=== PATIENT | female | born 2000 | race Caucasian/White ===

== ENCOUNTER 2025-04-07 12:48 | Observation (INO) | payer MEDICAID, SELFPAY ==
[2025-04-07 14:23] VITALS: BP 139/102; PULSE 106; RESP 18; TEMP 37.1; O2SAT 100
--- NOTE | 2025-04-07 14:34 | XR_ITS ---
Examination: CT abdomen with intravenous contrast CT pelvis with intravenous contrast 2-D coronal reconstructions 2-D sagittal reconstructions Date and time of exam: April 07, 2025, 1731 hours INDICATIONS: Lower pelvic pain onset today diffuse abdominal pain. CTDI: vol (mGy) 8.41 DLP: (mGycm) 450 Technique: Multiple axial sections of the abdomen and pelvis have been obtained. 64 slice high-resolution scanner used. 3 mm axial sections have been obtained, post intravenous injection 60 cc [id number] 2-D sagittal, coronal reconstructions obtained. Low dose protocols were performed. One or more of the following dose reduction techniques were used; automated exposure control, adjustment of the mA and/or KV according to patient size, use of iterative reconstruction technique. Findings: 13 mm posterior right lobe liver lesion image 41 No biliary tract dilatation No gallstones Spleen pancreas adrenal glands are not enlarged. No renal or ureteral calculi, no hydronephrosis Aorta normal size Appendix is minimally thickened, no definite periappendiceal inflammatory change Anteverted uterus with dilated endometrium Complex cystic solid septated mass in the right pelvis, 5 cm, with marked inflammatory change Mild free fluid in the pelvis Urinary bladder intact Osseous structures intact IMPRESSION: 13 mm posterior right lobe liver lesion, recommend pelvic sonography for further assessment Complex cystic solid septated mass in the right pelvis with marked inflammatory change, differential would include tubo-ovarian abscess, right ovarian tumor, ectopic in the appropriate clinical setting Recommend transabdominal and transvaginal pelvic sonography follow-up
--- NOTE | 2025-04-07 14:35 | PD.EDADULT ---
ED General RME/HPI General Chief complaint: General Adult/Misc Complain Stated complaint: OVARIAN CYST PAIN Time Seen by Provider: 04/07/25 13:04 Arrival date/time: 04/07/25 12:48 24-year-old female with a history of ovarian cyst and fibroids reports with complaints of diffuse abdominal pain for 3 days. Patient also says she has had a bout of nausea but no vomiting no fever, chills, dysuria, urinary, urgency, frequency, hematuria, abnormal vaginal bleeding, weakness, or fatigue. Patient states that she has taken [id number] medications with no improvement of symptoms. Patient also reports mid back pain Limitations: no limitations Related Data Home Medications ?Medication ?Instructions ?Recorded ?Confirmed albuterol sulfate 90 mcg/actuation 2 puff inhalation Q4H PRN 04/08/25 04/08/25 aerosol inhaler shortness of breath or wheezing amlodipine 5 mg tablet 5 mg PO QDAY 04/08/25 04/08/25 beclomethasone dipropionate 40 2 inh inhalation BID 04/08/25 04/08/25 mcg/actuation HFA breath activated aerosol (Qvar RediHaler) hydroxyzine HCl 25 mg tablet 25 mg PO TID 04/08/25 04/08/25 sertraline 50 mg tablet 50 mg PO QDAY 04/08/25 04/08/25 Previous Rx's ?Medication ?Instructions ?Recorded acetaminophen 325 mg tablet 650 mg (2 x 325 mg) PO Q6H PRN 04/09/25 Fever >101.5 #30 tabs amoxicillin 875 mg-potassium 1 tab PO BID #20 tabs 04/09/25 clavulanate 125 mg tablet docusate sodium 100 mg capsule 100 mg PO QDAY PRN Constipation #2 04/09/25 caps doxycycline hyclate 100 mg tablet 100 mg PO BID #14 tabs 04/09/25 ibuprofen 600 mg tablet 600 mg PO Q6H PRN Pain Scale 1-3 04/09/25 (Mild #60 tabs oxycodone-acetaminophen 5 mg-325 1 tab PO Q6H PRN Pain Scale 4-6 04/09/25 mg tablet (Moderate #10 tabs Allergies Allergy/AdvReac Type Severity Reaction Status Date / Time No Known Allergies Allergy Verified 04/07/25 12:50 Review of Systems Constitutional Constitutional: Denies chills, Denies fever(s) and Denies headache(s) ENT Ears, Nose, Mouth, and Throat: Denies dizziness and Denies headache(s) Cardiovascular Cardiovascular: Denies chest pain, Denies dyspnea and Denies irregular heart rhythm Respiratory Respiratory: Denies cough and Denies dyspnea Gastrointestinal Gastrointestinal: Reports abdominal pain, Reports nausea and Denies vomiting Genitourinary Genitourinary: Denies abnormal vaginal bleeding, Denies dysuria, Reports pelvic pain and Reports other (History of uterine fibroids and ovarian cysts) Musculoskeletal Musculoskeletal: Reports back pain and Denies myalgias Integumentary/Breasts Skin/Breast: Denies rash Neurologic Neurologic: Denies dizziness and Denies headache(s) Hematologic/Lymphatic Hematologic/Lymphatic: Denies easy bleeding and Denies easy bruising Past Medical History Social History SMOKING STATUS: Never smoker ED Exam General Limitations: Present no limitations General appearance: Present alert and in no apparent distress Chest Chest inspection: Present normal inspection and symmetric chest wall rise Respiratory Respiratory exam: Present normal lung sounds bilaterally Cardiovascular Cardiovascular exam: Present regular rate, normal rhythm and normal heart sounds Abdominal Exam Abdominal exam: Present soft, tenderness (Diffuse) and normal bowel sounds; Absent guarding, rebound, ascites, mass or hernia Abdominal tenderness: Present diffuse and moderate Extremities Exam Extremities exam: Present normal inspection and full ROM Back Exam Back exam: Present normal inspection and full ROM Neurological Exam Neurological exam: Present alert, oriented X3 and CN II-XII intact Psychiatric Psychiatric exam: Present normal affect and normal mood Skin Skin exam: Present warm, dry, intact and normal color Course Quality Measures none Orders Category Date Time Status Place in Observation Status Routine Admission 04/07/25 23:46 Active Bedside COVID-19 Antigen Test NOW Care 04/07/25 22:52 Completed Bedside Influenza A&B Antigen Test NOW Care 04/07/25 22:52 Completed COVID-19 Screening Questionnaire NOW Care 04/07/25 23:[address] Screening NOW Care 04/07/25 14:35 Completed Decision to Admit X1 Care 04/07/25 23:[address] abdomen pelvis w con Stat Exams 04/07/25 14:34 Completed US abdomen Stat Exams 04/07/25 21:14 Completed US transvaginal Stat Exams 04/07/25 21:14 Completed XR chest 1V portable Stat Exams 04/07/25 22:50 Completed Bilirubin,Direct Stat Lab 04/07/25 16:28 Completed Blood Culture (Lab) Stat Lab 04/07/25 16:28 Completed CBC Stat Lab 04/07/25 14:45 Completed CMP [Comprehensive Metabolic Panel] Stat Lab 04/07/25 14:45 Completed CRP [C-Reactive Protein] Stat Lab 04/07/25 16:28 Completed Free T3 Stat Lab 04/07/25 16:28 Completed Free T4 (Free Thyroxine) Stat Lab 04/07/25 16:28 Completed HCG,Qualitative Serum Stat Lab 04/07/25 14:45 Completed Lactate (Lactic Acid) Stat Lab 04/07/25 16:28 Completed Magnesium Stat Lab 04/07/25 16:28 Completed Procalcitonin Stat Lab 04/07/25 16:28 Completed Sed Rate (ESR) Stat Lab 04/07/25 14:45 Completed TSH [Thyroid Stimulating Hormone] Stat Lab 04/07/25 16:28 Completed UA, C/S IF [Urinalysis, C/S if Indicated] Stat Lab 04/07/25 15:20 Completed Acetaminophen Tab [Tylenol ES Tab] Med 04/07/25 19:16 Discontinued 1,000 mg PO X1 ONE Ketorolac Inj [Toradol Inj] Med 04/07/25 22:52 Discontinued 30 mg IVP X1 ONE Piper/Tazo 3.375 gm Premix [Zosyn] Med 04/07/25 19:20 Discontinued 3.375 gm in 50 ml IV X1 Sodium Chloride 0.9% 1000 ml [Ns] 1,000 ml Med 04/07/25 19:01 Discontinued IV 999 mls/hr Vital Signs Vital signs: Vital Signs Temperature 98.8 F 04/07/25 14:23 Pulse Rate 106 H 04/07/25 14:23 Respiratory Rate 18 04/07/25 14:23 Blood Pressure 139/102 H 04/07/25 14:23 Pulse Oximetry (%) 100 04/07/25 14:23 Oxygen Delivery Method Room Air 04/07/25 14:23 Discharge Plan Plan Patient Disposition: Other Care w/in Hosp ([facility]) Patient condition on transfer: Stable Problem List Clinical Impression: Sepsis, Right tubo-ovarian abscess Patient/Caregiver Discharge Instructions Discharge Activity: activity as tolerated Other Activity Instructions:: Pelvic rest x 2 weeks. Call your stabilizing machine operator in [place] for follow-up in 1 week. Diet Instructions: General diet as tolerated Attestation Attestation I took over the care from ALESHIA Bowers at _11PM_ on _04/07/25_. See previous notes for complete H & P and ED course. I reviewed all diagnostic test results. My interpretation of the chest x-ray is NAD. My review of the abdominal CT report is right sided pelvic complex cystic mass. My review of the abdominal US report is NAD. My review of the pelvic US report is right adnexal masses. Blood tests and urine tests remarkable for WBC 25.4, ESR 30, CRP 4.7. Diagnoses include: Sepsis Right tubo-ovarian abscess Treatment here included: IVF Tylenol Toradol Zosyn We discussed the case with our PULL SOCKET ASSEMBLER (Dr. Godoy). About the presentation and exam and diagnostics and treatments here. And need of further care in the hospital. Agreed to accept the patient. Shan Mckeon MD [facility] Medication Administration(s) Medication Administration History Discontinued Medications Acetaminophen (Acetaminophen 500 Mg Tablet) 1,000 mg PO X1 ONE Stop: 04/07/25 19:17 Last Admin: 04/07/25 19:53 Dose: 1,000 mg Documented By: MILDRED Acetaminophen (Acetaminophen 325 Mg Tablet) 650 mg PO Q6H PRN PRN Reason: Fever >101.5 Stop: 05/07/25 23:45 Bisacodyl (Bisacodyl 5 Mg Tabec) 10 mg PO QDAY PRN PRN Reason: CONSTIPATION Stop: 05/07/25 23:45 Bisacodyl (Bisacodyl 10 Mg Supp) 10 mg OR QDAY PRN PRN Reason: CONSTIPATION Stop: 05/07/25 23:45 Docusate Sodium (Docusate Sod 100 Mg Capsule) 100 mg PO QDAY PRN; Protocol PRN Reason: CONSTIPATION Stop: 05/07/25 23:45 Doxycycline Hyclate (Doxycycline 100 Mg Tablet) 100 mg PO BID LOYD Stop: 04/14/25 23:44 Last Admin: 04/09/25 08:34 Dose: 100 mg Documented By: Admin: 04/08/25 20:58 Dose: 100 mg Documented By: Admin: 04/08/25 09:33 Dose: 100 mg Documented By: ps Admin: 04/08/25 00:43 Dose: 100 mg Documented By: MILDRED Hydromorphone HCl (Hydromorphone Inj 2 Mg/Ml Vial) 1 mg IVP Q2H PRN PRN Reason: PAIN SCALE 7-10 (Severe Stop: 04/12/25 23:45 Last Admin: 04/08/25 21:29 Dose: 1 mg Documented By: Admin: 04/08/25 13:28 Dose: 1 mg Documented By: mercy Admin: 04/08/25 09:33 Dose: 1 mg Documented By: mercy Admin: 04/08/25 05:47 Dose: 1 mg Documented By: Admin: 04/08/25 00:43 Dose: 1 mg Documented By: MILDRED Sodium Chloride (Ns) 1,000 mls @ 999 mls/hr IV .Q1H1M ONE Stop: 04/07/25 20:01 Last Infusion: 04/07/25 21:41 Dose: Infused Documented By: Admin: 04/07/25 19:46 Dose: 999 mls/hr Documented By: Piperacillin/Tazobactam/Dextrose (Zosyn) 3.375 gm in 50 mls @ 100 mls/hr IV X1 ONE; Protocol Stop: 04/07/25 19:49 Last Infusion: 04/07/25 21:41 Dose: Infused Documented By: Admin: 04/07/25 19:54 Dose: 100 mls/hr Documented By: MILDRED Potassium Chloride/Dextrose/Sod Cl (Kcl 20 Meq/L In D5-1/2ns) 20 meq in 1,000 mls @ 125 mls/hr IV .Q8H [facility] Stop: 05/07/25 23:44 Last Admin: 04/09/25 09:03 Dose: 125 mls/hr Documented By: Infusion: 04/09/25 09:01 Dose: Infused Documented By: Admin: 04/09/25 01:01 Dose: 125 mls/hr Documented By: Infusion: 04/09/25 00:38 Dose: Infused Documented By: Admin: 04/08/25 16:38 Dose: 125 mls/hr Documented By: mercy Infusion: 04/08/25 16:38 Dose: Infused Documented By: mercy Admin: 04/08/25 09:33 Dose: 125 mls/hr Documented By: mercy Infusion: 04/08/25 08:43 Dose: Infused Documented By: mercy Admin: 04/08/25 00:43 Dose: 125 mls/hr Documented By: MILDRED Ceftriaxone Sodium/Dextrose (Rocephin/D5w 1gm Iv Premix) 1 gm in 50 mls @ 100 mls/hr IV DAILY [facility] Stop: 04/15/25 08:59 Last Admin: 04/09/25 08:34 Dose: 100 mls/hr Documented By: Infusion: 04/08/25 10:04 Dose: Infused Documented By: Admin: 04/08/25 09:34 Dose: 100 mls/hr Documented By: mercy Ibuprofen (Ibuprofen Tab 600 Mg Tablet) 600 mg PO Q6H PRN PRN Reason: PAIN SCALE 1-3 (mild Stop: 05/07/25 23:45 Ketorolac Tromethamine (Ketorolac Inj 30 Mg/Ml Vial) 30 mg IVP X1 ONE Stop: 04/07/25 22:53 Last Admin: 04/07/25 23:29 Dose: 30 mg Documented By: MILDRED Metoclopramide HCl (Metoclopramide Inj 5 Mg/Ml Vial 2 Ml) 10 mg IVP Q8HR [facility]; Protocol Stop: 05/08/25 10:24 Last Admin: 04/09/25 14:50 Dose: 10 mg Documented By: Admin: 04/09/25 06:36 Dose: 10 mg Documented By: Admin: 04/08/25 21:06 Dose: 10 mg Documented By: Admin: 04/08/25 13:29 Dose: 10 mg Documented By: mercy Admin: 04/08/25 10:31 Dose: 10 mg Documented By: mercy Ondansetron HCl (Ondansetron Inj 2 Mg/Ml Inj 2 Ml) 4 mg IVP Q6H PRN PRN Reason: NAUSEA OR VOMITING Stop: 05/07/25 23:45 Last Admin: 04/08/25 09:33 Dose: 4 mg Documented By: mercy Admin: 04/08/25 01:39 Dose: 4 mg Documented By: SUDARSHAN Oxycodone/Acetaminophen (Oxycodone/Apap 5/325 Tablet) 2 tab PO Q6H PRN PRN Reason: PAIN SCALE 4-6 (Moderate Stop: 04/12/25 23:45 Last Admin: 04/09/25 06:36 Dose: 2 tab Documented By: Admin: 04/09/25 01:00 Dose: 2 tab Documented By: Admin: 04/08/25 05:14 Dose: 2 tab Documented By: SUDARSHAN
[2025-04-07 15:06] LABS: Basophils # (Auto) 0.1 Thou/mm3 (0.0-0.2); Basophils % (Auto) 0 % (0-2.5); Eosinophils # (Auto) 0.1 Thou/mm3 (0.0-0.5); Eosinophils % (Auto) 0 % (0-10); Hematocrit 41.7 % (36.0-46.0); Hemoglobin 13.9 g/dL (12.0-16.0); Immature Granulocytes Auto 0.13 Thou/mm3 (0.00-0.00); Lymphocytes # (Auto) 1.5 Thou/mm3 (1.0-4.8); Lymphocytes % (Auto) 6 % (10-50); Mean Corpuscular HGB Conc 33.3 g/dl (31.0-37.0); Mean Corpuscular Hemoglobin 28.6 pg (25.0-35.0); Mean Corpuscular Volume 86 fL (80-100); Monocytes # (Auto) 1.0 Thou/mm3 (0.0-0.8); Monocytes % (Auto) 4 % (0-12); Neutrophils # (Auto) 22.7 Thou/mm3 (1.8-7.7); Neutrophils % (Auto) 89 % (37-80); Nucleated Red Blood Cell # 0.00 Thou/mm3 (0.00-0.00); Nucleated Red Blood Cell % 0 /100 WBC (0); Platelet Count 282 Thou/mm3 (140-440); RDW Standard Deviation 43.6 fL (36.4-46.3); Red Blood Count 4.86 Miln/mm3 (4.00-5.20); White Blood Count 25.4 Thou/mm3 (3.6-11.0)
[2025-04-07 15:30] LABS: HCG,Qualitative Serum Negative
[2025-04-07 15:31] LABS: Alanine Aminotransferase 28 U/L (10-49); Albumin, Serum 5.1 gm/dL (3.5-5.0); Albumin/Globulin Ratio 1.6 (1.2-2.2); Alkaline Phosphatase 91 U/L (46-116); Anion Gap 13 (7-16); Aspartate Amino Transferase 21 U/L (0-34); BUN/Creatinine Ratio 9 Ratio (12-20); Bilirubin,Total 0.5 mg/dL (0.3-1.2); Blood Urea Nitrogen 7 mg/dL (9-23); Calcium 9.3 mg/dL (8.3-10.6); Calcium (Corrected) 9.3 mg/dL (8.5-10.1); Carbon Dioxide 24.5 mMol/L (20.0-31.0); Chloride 103 mMol/L (98-107); Creatinine (Component) 0.8 mg/dL (0.6-1.3); Globulin 3.1 gm/dL (2.3-3.5); Glucose 101 mg/dL (74-106); Osmolality,Calculated 277 (275-295); Potassium 3.9 mMol/L (3.4-5.1); Sodium 140 mMol/L (136-145); Total Protein 8.2 gm/dL (5.7-8.2); eGFR > 60 See Note
--- NOTE | 2025-04-07 15:34 | PC.NURSE ---
Sepsis alert initiated at 1530.
[2025-04-07 15:59] LABS: Collection Type, Urine Clean Catch
[2025-04-07 16:04] LABS: Bilirubin,Urine Negative (Negative); Blood,Urine 2+ (Negative); Clarity,Urine Clear (Clear/Hazy); Color,Urine Lt-Yellow (Lt Yel-Yel); Culture Indicated,Urine Not Indicated; Glucose, Urine Negative (Negative); Ketones,Urine Negative (Negative); Leukocyte Esterase,Urine Negative (Negative); Nitrite,Urine Negative (Negative); PH,Urine 7.5 (5.0-7.0); Protein,Urine Negative (Neg - Trace); RBC,Urine 3 /hpf (0-3); Specific Gravity,Urine 1.024 (1.001-1.035); Squamous Epithelial Cell,Urine 11 /hpf (0-5); Urobilinogen,Urine Negative mg/dL (0.0-1.0); WBC,Urine 2 /hpf (0-5)
[2025-04-07 16:41] LABS: Lactate (Lactic Acid) 1.8 mMol/L (0.4-2.0)
[2025-04-07 17:11] LABS: Procalcitonin 0.13 ng/ml (0.0-0.49)
[2025-04-07 19:08] VITALS: BP 134/95; PULSE 108; RESP 20; TEMP 37.9; O2SAT 97
[2025-04-07] MEDS: SODIUM CHLORIDE 0.9% 1000 ML 1,000 ML 999 ML IV (19:46)
[2025-04-07 19:52] VITALS: BP 142/99; PULSE 109; RESP 17; TEMP 36.9; O2SAT 97
[2025-04-07] MEDS: ACETAMINOPHEN 500 MG TABLET 1000 MG PO (19:53)
[2025-04-07] MEDS: PIPER/TAZO 3.375 GM PREMIX 3.375 GM/50 ML BAG IV (19:54)
--- NOTE | 2025-04-07 21:14 | XR_ITS ---
Examination: Transvaginal ultrasound of the pelvis, complete Technique: Transvaginal sonographic images pelvis performed using louis scale imaging Exam date and time: April 07, 2025, 213 hours INDICATIONS: Pelvic pain fever today, CT examination this afternoon complex cystic solid septated mass in the right pelvis with marked inflammatory change FINDINGS: Uterus 6.8 cm endometrial stripe 0.3 cm No uterine mass or intrauterine gestation Fluid in the anterior cul-de-sac Right ovary 6.9 cm arterial flow, 2.8 x 2.1 x 2.4 cm solid lesion, 2.5 x 1.9 x 2.1 cm solid lesion Upper ovary 4.4 cm arterial flow poorly defined left ovarian cyst 2.4 x 1.9 cm IMPRESSION: Right adnexal solid masses 2.8 x 2.1 x 2.4 cm, 2.5 x 1.9 x 2.1 cm, differential would include tubo-ovarian abscesses, ovarian tumors, ectopic in the appropriate clinical setting, clinical correlation advised If ectopic is excluded clinically, consider MRI pelvis follow-up pre and postcontrast.
--- NOTE | 2025-04-07 21:14 | XR_ITS ---
Examination: Abdomen sonogram, complete Date and time of exam: April 07, 2025, 2126 hours INDICATIONS: Fever abdominal pain today TECHNIQUE: Grayscale sonographic images of abdomen. FINDINGS: Normal gallbladder Normal common bile duct 0.1 cm Pancreatic head 2.3 cm Aorta not enlarged. Liver 13.9 cm solid right lobe liver lesion 20 x 16 x 16 mm, hyperechoic Normal hepatopetal portal venous flow Patent IVC Right kidney 10.8 cm renal cortex 1.9 cm Left kidney 10.2 cm renal cortex 2.5 cm Spleen 9.8 cm. Impression: Hyperechoic right lobe liver lesion 20 x 16 x 16 mm which may represent a hemangioma Recommend 3 to 6-month follow-up hepatic sonography
[2025-04-07 22:43] VITALS: BP 137/89; PULSE 95; RESP 18; TEMP 36.8; O2SAT 99
--- NOTE | 2025-04-07 22:50 | XR_ITS ---
EXAMINATION: AP chest single view TECHNIQUE: AP portable upright chest single view Date and time: April 07, 2025, 11:14 p.m. INDICATION: Fever today. FINDINGS: Normal heart size No lobar pneumonia Intact osseous structures IMPRESSION: No active disease
[2025-04-07 23:21] LABS: Sed Rate (ESR) 30 mm/hr (0-20)
--- NOTE | 2025-04-07 23:28 | ESCONSULT_ITS ---
[facility] HPI Data of Consult Patient: new to practice Consult date: 04/07/25 Requesting Physician: Charli Hillman PA-C Primary Care Provider: Physician No Primary/Family Consult Narrative Reason for consult: pelvic pain and pelvic mass History of present illness: The patient is a 24-year-old G0 presented to the ER earlier this afternoon with pelvic pain. She stated worsened over the last 3 days. She denied fevers or chills, she reports the pain is stabbing ,diffuse and constant. She denies diarrhea or constipation or rectal bleeding. She has mild nausea but no vomiting. Per patient she has a history of fibroids and endometriosis. She was seeing a physician in [place] and had an MRI done in January of this year. Patient has the report on her phone. It is from February 20 revealing suspected bilateral endometriomas each 2 to 3 cm. Patient is engaged and her fianc? is at bedside during the interview. She reports some abnormal bleeding and some discharge. She denied history of STDs or new sexual contacts. She states her cycles are irregular they are not using anything consistently for contraception. As part of her workup, the patient had a CBC revealing an elevated white count of 25 with 89% neutrophils. Hemoglobin was stable at 13.9. hCG is negative. UA is unremarkable. A CT scan revealed a 5 cm mass with inflammatory changes in the right adnexa a transvaginal ultrasound was performed but not officially read yet. I did look at the films and uterus measures approximately 6.7 x 4.7 x 3 cm with a 0.3 cm stripe right ovary is enlarged 6.9 x 4.6 x 5.4 cm with grayish appearance and complex suggestive of a possible endometrioma ,her left ovary measures 4.4 x 2.9 x 3 cm. Patient had a temperature of 100.3 degrees in the emergency room. Before I was consulted, Zosyn was given. In the emergency room, the patient is asking if she can eat. For her pain as an outpatient, the patient was only given ibuprofen. She was supposed to follow-up with her primary wire straightener in [place] but did not receive a phone call after her MRI done February 20, 2025. cc:: cc: Review of Systems Review of Systems Narrative Review of Systems: Pelvic pain, stabbing, some abnormal bleeding and abnormal discharge. No documented fevers or chills at home. Past Medical History Past Medical History Comments PMH COMMENT: Patient is hypertensive on amlodipine She has a history of scoliosis but no surgery She is asthmatic on 2 inhalers She denies any other surgeries. Meds Home Medications and Allergies Allergies Allergy/AdvReac Type Severity Reaction Status Date / Time No Known Allergies Allergy Verified 04/07/25 12:50 Exam - [facility] Vital Signs Temp Pulse Resp BP Pulse Ox O2 Del Method 98.2 F 95 18 137/89 H 99 Room Air 04/07/25 22:43 04/07/25 22:43 04/07/25 22:43 04/07/25 22:43 04/07/25 22:43 04/07/25 22:43 Constitutional Constitutional: mild distress and cooperative Comments: The patient's alert and cooperative. She is wincing in pain occasionally during the interview. Routine Abdominal Exam Abdominal: Present soft and tenderness Comments: Abdomen is soft diffusely tender no rebound or guarding Routine Exam Comments: Pelvic exam was performed at bedside. Patient has a narrow pelvic outlet. She has diffuse tenderness of her pelvis no discrete ovarian masses can be palpated. The uterus feels mobile. Uterus is midlying. Detailed Pelvic Exam Uterus: Present tenderness and mobile [facility] - Results Labs 04/07/25 14:45 04/07/25 14:45 Labs: Short CBC 04/07/25 Range/Units 14:45 WBC 25.4 H (3.6-11.0) Thou/mm3 Hgb 13.9 (12.0-16.0) g/dL Hct 41.7 (36.0-46.0) % Plt Count 282 (140-440) Thou/mm3 BMP 04/07/25 14:45 Sodium 140 Potassium 3.9 Chloride 103 Carbon Dioxide 24.5 BUN 7 L Creatinine 0.8 Glucose 101 Calcium 9.3 Liver Function 04/07/25 Range/Units 14:45 Total Bilirubin 0.5 (0.3-1.2) mg/dL AST 21 (0-34) U/L ALT 28 (10-49) U/L Alkaline Phosphatase 91 (46-116) U/L Albumin 5.1 H (3.5-5.0) gm/dL Urine 04/07/25 Range/Units 15:20 Urine Color Lt-Yellow (Lt Yel-Yel) Urine Clarity Clear (Clear/Hazy) Urine pH 7.5 H (5.0-7.0) Ur Specific [place] 1.024 (1.001-1.035) Urine Protein Negative (Neg - Trace) Urine Glucose (UA) Negative (Negative) Assessment and Plan Assessment and plan (1) Pelvic pain: Status: Acute Assessment and plan: At this point we will admit the patient for pain control and observation. (2) Ovarian cyst: Status: Acute Assessment and plan: Patient has an enlarged right ovary and pain. Ultrasound appears to be an endometrioma. Check GC chlamydia treat the patient will start with Rocephin and doxycycline and reevaluate. (3) Endometriosis: Status: Acute Assessment and plan: Patient has a wire straightener and was supposed to follow-up as an outpatient but the wire straightener never called her. Patient may need a diagnostic laparoscopy. We did discuss endometriosis and the fact that it can cause her significant adhesions between bowel ovaries tubes and other organs. If she has surgery, she may need a oophorectomy or salpingo-oophorectomy. This would affect future childbearing. At this time, the plan is to admit the patient, give antibiotics and reassess pain and symptoms tomorrow. (1) Pelvic pain Qualifiers: Laterality: unspecified laterality Qualified Code(s): R10.20 - Pelvic and perineal pain unspecified side (2) Ovarian cyst Qualifiers: Laterality: right Qualified Code(s): N83.201 - Unspecified ovarian cyst, right side
[2025-04-07] MEDS: KETOROLAC INJ 30 MG/ML VIAL IVP (23:29)
[2025-04-07 23:41] LABS: Bilirubin,Direct 0.2 mg/dL (0.0-0.3); C-Reactive Protein 4.7 mg/dL (0.0-0.9); Magnesium 1.7 mg/dL (1.6-2.6); Thyroid Stimulating Hormone 0.39 uIU/mL (0.55-4.78)
[2025-04-08] MEDS: HYDROmorphone INJ 2 MG/ML VIAL 1 MG IVP ×5 (00:43→21:29)
[2025-04-08] MEDS: DOXYCYCLINE 100 MG TABLET PO ×3 (00:43→20:58)
[2025-04-08] MEDS: KCL 20 mEq/L in D5-1/2NS 20 MEQ/1,000 ML BAG 125 MEQ IV ×3 (00:43→16:38)
[2025-04-08 00:51] VITALS: BP 129/87; PULSE 96; RESP 18; TEMP 36.8; O2SAT 95
[2025-04-08 01:04] LABS: Free T3 2.4 pg/mL (2.3-4.2); Free T4 (Free Thyroxine) 1.42 ng/dL (0.89-1.76)
--- NOTE | 2025-04-08 01:35 | PC.NURSE ---
BEDSIDE STREP TEST WAS DONE BY THIS NURSE AND WAS NEGATIVE
[2025-04-08] MEDS: ONDANSETRON INJ 2 MG/ML INJ 2 ML 4 MG IVP ×2 (01:39→09:33)
[2025-04-08 01:42] VITALS: BMI 32.1
[2025-04-08 04:00] VITALS: BP 114/64; PULSE 78; RESP 18; TEMP 36.3; O2SAT 96
[2025-04-08 08:00] VITALS: BP 129/91; PULSE 92; RESP 18; TEMP 36.3; O2SAT 97
[2025-04-08] MEDS: cefTRIAXone/D5w 1gm IV premix 1 GM/50 ML BAG IV (09:34)
[2025-04-08] MEDS: METOCLOPRAMIDE INJ 5 MG/ML VIAL 2 ML 10 MG IVP ×3 (10:31→21:06)
[2025-04-08 12:00] VITALS: BP 118/88; PULSE 96; RESP 18; TEMP 36.6; O2SAT 97
[2025-04-08 16:00] VITALS: BP 103/73; PULSE 85; RESP 18; TEMP 36.8; O2SAT 96
--- NOTE | 2025-04-08 16:33 | ESPR_ITS ---
Documentation for date of: 04/08/25 PROFESSOR OF ENGLISH Subjective Subjective Interval history: The patient is a 24-year-old G0 presented to the ER earlier this afternoon with pelvic pain. She stated worsened over the last 3 days. She denied fevers or chills, she reports the pain is stabbing ,diffuse and constant. She denies diarrhea or constipation or rectal bleeding. She has mild nausea but no vomiting. Per patient she has a history of fibroids and endometriosis. She was seeing a physician in [place] and had an MRI done in January of this year. Patient has the report on her phone. It is from February 20 revealing suspected bilateral endometriomas each 2 to 3 cm. Patient is engaged and her fianc? is at bedside during the interview. She reports some abnormal bleeding and some discharge. She denied history of STDs or new sexual contacts. She states her cycles are irregular they are not using anything consistently for contraception. As part of her workup, the patient had a CBC revealing an elevated white count of 25 with 89% neutrophils. Hemoglobin was stable at 13.9. hCG is negative. UA is unremarkable. A CT scan revealed a 5 cm mass with inflammatory changes in the right adnexa a transvaginal ultrasound was performed but not officially read yet. I did look at the films and uterus measures approximately 6.7 x 4.7 x 3 cm with a 0.3 cm stripe right ovary is enlarged 6.9 x 4.6 x 5.4 cm with grayish appearance and complex suggestive of a possible endometrioma ,her left ovary measures 4.4 x 2.9 x 3 cm. Patient had a temperature of 100.3 degrees in the emergency room. Before I was consulted, Zosyn was given. In the emergency room, the patient is asking if she can eat. For her pain as an outpatient, the patient was only given ibuprofen. She was supposed to follow-up with her primary kiln door builder in [place] but did not receive a phone call after her MRI done February 20, 2025. Patient is on Rocephin and Doxycycline and her pain is still there abdomen but is getting better Subjective: patient reports feeling better Exam Vital Signs Temp Pulse Resp BP Pulse Ox O2 Del Method 98.3 F 85 18 103/73 96 Room Air 04/08/25 16:00 04/08/25 16:00 04/08/25 16:00 04/08/25 16:00 04/08/25 16:00 04/08/25 16:00 Narrative Exam Alert and oriented x 3 no shortness of breath Pain no chest pain no palpitations Chest clear bilaterally CVS regular rate and rhythm No CVAT Abdomen nontender, normal bowel sounds No guarding no rigidity No hernias Urinary Catheter Management Cath placed during this visit: no PROFESSOR OF ENGLISH - PN: Obj Data Labs 04/07/25 14:45 04/07/25 14:45 Labs: Laboratory Results - last 24 hr 04/07/25 04/07/25 04/07/25 14:45 15:20 16:28 ESR 30 H Lactic Acid 1.8 Magnesium 1.7 Direct Bilirubin 0.2 C-Reactive Prot, Quant 4.7 H Procalcitonin 0.13 TSH 0.39 L Free T4 1.42 Free T3 pg/dL 2.4 Ur Collection Type Clean Catch Urine Color Lt-Yellow Urine Clarity Clear Urine pH 7.5 H Ur Specific [place] 1.024 Urine Protein Negative Urine Glucose (UA) Negative Urine Ketones Negative Urine Blood 2+ A Urine Nitrite Negative Urine Bilirubin Negative Urine Urobilinogen (Auto) Negative Ur Leukocyte Esterase Negative Urine RBC 3 Urine WBC 2 Ur Squamous Epith Cells 11 H Urine Bacteria None Ur Culture Indicated? Not Indicated Chlam trachomat DNA PCR N.gonorrhoeae DNA (PCR) Trichomonas DNA Probe 04/08/25 01:00 ESR Lactic Acid Magnesium Direct Bilirubin C-Reactive Prot, Quant Procalcitonin TSH Free T4 Free T3 pg/dL Ur Collection Type Urine Color Urine Clarity Urine pH Ur Specific [place] Urine Protein Urine Glucose (UA) Urine Ketones Urine Blood Urine Nitrite Urine Bilirubin Urine Urobilinogen (Auto) Ur Leukocyte Esterase Urine RBC Urine WBC Ur Squamous Epith Cells Urine Bacteria Ur Culture Indicated? Chlam trachomat DNA PCR Cancelled N.gonorrhoeae DNA (PCR) Cancelled Trichomonas DNA Probe Cancelled PROFESSOR OF ENGLISH - A/P Assessment and plan (1) Pelvic pain: Status: Acute (2) Ovarian cyst: Status: Acute (3) Endometriosis: Status: Acute (4) Right tubo-ovarian abscess: Status: Acute Assessment and plan: recommend Iv antibiotics Rocephin and flagyl for 48 to 72 hours and then discharge home on oral doxycycline and flagyl follow up in 2 weeks and repeat US with her primary PROFESSOR OF ENGLISH in [place] or at the clinic Time Spent With Patient Time: Total time spent is greater than 50% in coordination of care (as documented) at patient's floor/unit and/or counseling patient: Time with patient: 25 - 35 minutes
[2025-04-08 20:00] VITALS: BP 105/72; PULSE 95; RESP 18; TEMP 36.4; O2SAT 95; O2SAT 96
[2025-04-09] VITALS: BP 123/56; PULSE 80; RESP 16; TEMP 36.7; O2SAT 95
[2025-04-09 00:40] LABS: Alanine Aminotransferase 25 U/L (10-49); Albumin, Serum 4.3 gm/dL (3.5-5.0); Albumin/Globulin Ratio 1.7 (1.2-2.2); Alkaline Phosphatase 67 U/L (46-116); Anion Gap 11 (7-16); Aspartate Amino Transferase 26 U/L (0-34); BUN/Creatinine Ratio 7 Ratio (12-20); Bilirubin,Total 0.4 mg/dL (0.3-1.2); Blood Urea Nitrogen < 5 mg/dL (9-23); Calcium 8.6 mg/dL (8.3-10.6); Calcium (Corrected) 8.6 mg/dL (8.5-10.1); Carbon Dioxide 22.8 mMol/L (20.0-31.0); Chloride 107 mMol/L (98-107); Creatinine (Component) 0.7 mg/dL (0.6-1.3); Estimated Creatinine Clearance 115.5 mL/min (>60); Globulin 2.6 gm/dL (2.3-3.5); Glucose 118 mg/dL (74-106); Osmolality,Calculated 279 (275-295); Potassium 4.2 mMol/L (3.4-5.1); Sodium 141 mMol/L (136-145); Total Protein 6.9 gm/dL (5.7-8.2); eGFR > 60 See Note
[2025-04-09 00:41] LABS: Basophils # (Auto) 0.0 Thou/mm3 (0.0-0.2); Basophils % (Auto) 0 % (0-2.5); Eosinophils # (Auto) 0.3 Thou/mm3 (0.0-0.5); Eosinophils % (Auto) 2 % (0-10); Hematocrit 34.7 % (36.0-46.0); Hemoglobin 11.5 g/dL (12.0-16.0); Immature Granulocytes Auto 0.05 Thou/mm3 (0.00-0.00); Lymphocytes # (Auto) 2.1 Thou/mm3 (1.0-4.8); Lymphocytes % (Auto) 16 % (10-50); Mean Corpuscular HGB Conc 33.1 g/dl (31.0-37.0); Mean Corpuscular Hemoglobin 28.3 pg (25.0-35.0); Mean Corpuscular Volume 86 fL (80-100); Monocytes # (Auto) 0.8 Thou/mm3 (0.0-0.8); Monocytes % (Auto) 6 % (0-12); Neutrophils # (Auto) 9.6 Thou/mm3 (1.8-7.7); Neutrophils % (Auto) 75 % (37-80); Nucleated Red Blood Cell # 0.00 Thou/mm3 (0.00-0.00); Nucleated Red Blood Cell % 0 /100 WBC (0); Platelet Count 250 Thou/mm3 (140-440); RDW Standard Deviation 44.5 fL (36.4-46.3); Red Blood Count 4.06 Miln/mm3 (4.00-5.20); White Blood Count 12.8 Thou/mm3 (3.6-11.0)
[2025-04-09] MEDS: KCL 20 mEq/L in D5-1/2NS 20 MEQ/1,000 ML BAG 125 MEQ IV ×2 (01:01→09:03)
[2025-04-09 04:00] VITALS: BP 118/93; PULSE 93; RESP 16; TEMP 36.8; O2SAT 97
[2025-04-09 06:01] LABS: Basophils # (Auto) 0.0 Thou/mm3 (0.0-0.2); Basophils % (Auto) 0 % (0-2.5); Eosinophils # (Auto) 0.4 Thou/mm3 (0.0-0.5); Eosinophils % (Auto) 3 % (0-10); Hematocrit 33.9 % (36.0-46.0); Hemoglobin 11.0 g/dL (12.0-16.0); Immature Granulocytes Auto 0.04 Thou/mm3 (0.00-0.00); Lymphocytes # (Auto) 2.4 Thou/mm3 (1.0-4.8); Lymphocytes % (Auto) 21 % (10-50); Mean Corpuscular HGB Conc 32.4 g/dl (31.0-37.0); Mean Corpuscular Hemoglobin 28.1 pg (25.0-35.0); Mean Corpuscular Volume 87 fL (80-100); Monocytes # (Auto) 0.7 Thou/mm3 (0.0-0.8); Monocytes % (Auto) 6 % (0-12); Neutrophils # (Auto) 7.9 Thou/mm3 (1.8-7.7); Neutrophils % (Auto) 69 % (37-80); Nucleated Red Blood Cell # 0.00 Thou/mm3 (0.00-0.00); Nucleated Red Blood Cell % 0 /100 WBC (0); Platelet Count 229 Thou/mm3 (140-440); RDW Standard Deviation 46.2 fL (36.4-46.3); Red Blood Count 3.92 Miln/mm3 (4.00-5.20); White Blood Count 11.4 Thou/mm3 (3.6-11.0)
[2025-04-09] MEDS: METOCLOPRAMIDE INJ 5 MG/ML VIAL 2 ML 10 MG IVP ×2 (06:36→14:50)
[2025-04-09 08:10] VITALS: BP 115/80; PULSE 104; RESP 16; TEMP 36.9; O2SAT 97
[2025-04-09] MEDS: DOXYCYCLINE 100 MG TABLET PO (08:34)
[2025-04-09] MEDS: cefTRIAXone/D5w 1gm IV premix 1 GM/50 ML BAG IV (08:34)
--- NOTE | 2025-04-09 08:58 | XR_ITS ---
Examination: Transvaginal ultrasound of the pelvis, complete Technique: Transvaginal sonographic images pelvis performed using louis scale imaging Exam date and time: April 09, 2025, 1212 hours INDICATIONS: Right adnexal solid masses 28 mm, 25 mm on pelvic sonogram April 07, 2025, pelvic pain months FINDINGS: Uterus 6.9 cm no uterine mass or intrauterine gestation Endometrial stripe 0.5 cm Right ovary 4.6 x 6.7 cm arterial flow Solid masses within the right ovary 3.1 x 2.8 cm, 2.2 x 2.0 cm Left ovary 4.9 cm arterial flow 27 mm x 31 mm cyst and smaller follicular cysts IMPRESSION: Solid right ovarian masses consistent with right ovarian tumors Recommend MRI pelvis follow-up pre and postcontrast.
--- NOTE | 2025-04-09 11:13 | ESPR_ITS ---
Documentation for date of: 04/09/25 ASSOCIATE PROFESSOR OF LITERACY Subjective Subjective Interval history: The patient is a 24-year-old G0 presented to the ER earlier this afternoon with pelvic pain. She stated worsened over the last 3 days. She denied fevers or chills, she reports the pain is stabbing ,diffuse and constant. She denies diarrhea or constipation or rectal bleeding. She has mild nausea but no vomiting. Per patient she has a history of fibroids and endometriosis. She was seeing a physician in [place] and had an MRI done in January of this year. Patient has the report on her phone. It is from February 20 revealing suspected bilateral endometriomas each 2 to 3 cm. Patient is engaged and her fianc? is at bedside during the interview. She reports some abnormal bleeding and some discharge. She denied history of STDs or new sexual contacts. She states her cycles are irregular they are not using anything consistently for contraception. As part of her workup, the patient had a CBC revealing an elevated white count of 25 with 89% neutrophils. Hemoglobin was stable at 13.9. hCG is negative. UA is unremarkable. A CT scan revealed a 5 cm mass with inflammatory changes in the right adnexa a transvaginal ultrasound was performed but not officially read yet. I did look at the films and uterus measures approximately 6.7 x 4.7 x 3 cm with a 0.3 cm stripe right ovary is enlarged 6.9 x 4.6 x 5.4 cm with grayish appearance and complex suggestive of a possible endometrioma ,her left ovary measures 4.4 x 2.9 x 3 cm. Patient had a temperature of 100.3 degrees in the emergency room. Before I was consulted, Zosyn was given. In the emergency room, the patient is asking if she can eat. For her pain as an outpatient, the patient was only given ibuprofen. She was supposed to follow-up with her primary instructor nurse in [place] but did not receive a phone call after her MRI done February 20, 2025. Patient is on Rocephin and Doxycycline and her pain is still there abdomen but is getting better This morning, the patient is resting comfortably tolerating a general diet. She has not been ambulating much and states she still having pain. A transvaginal ultrasound has been ordered. Subjective: patient reports feeling better and patient is tolerating oral intake Exam Vital Signs Temp Pulse Resp BP Pulse Ox O2 Del Method 98.4 F 104 H 16 115/80 97 Room Air 04/09/25 08:10 04/09/25 08:10 04/09/25 08:10 04/09/25 08:10 04/09/25 08:10 04/09/25 08:10 Narrative Exam Patient is alert and oriented x 3 in no apparent distress Abdomen is soft slightly tender no rebound no guarding Urinary Catheter Management Cath placed during this visit: no ASSOCIATE PROFESSOR OF LITERACY - PN: Obj Data Labs 04/09/25 05:13 04/08/25 23:51 Labs: Laboratory Results - last 24 hr 04/08/25 04/09/25 23:51 05:13 WBC 12.8 H D 11.4 H RBC 4.06 3.92 L Hgb 11.5 L D 11.0 L Hct 34.7 L 33.9 L MCV 86 87 MCH 28.3 28.1 MCHC 33.1 32.4 RDW Std Deviation 44.5 46.2 Plt Count 250 D 229 Neut % (Auto) 75 69 Lymph % (Auto) 16 21 [place] % (Auto) 6 6 Eos % (Auto) 2 3 Baso % (Auto) 0 0 Neut # (Auto) 9.6 H 7.9 H Lymph # (Auto) 2.1 2.4 [place] # (Auto) 0.8 0.7 Eos # (Auto) 0.3 0.4 Baso # (Auto) 0.0 0.0 Immature Gran # (Auto) 0.05 H 0.04 H Absolute Nucleated RBC 0.00 0.00 Immature Gran % 0 0 Nucleated RBC % 0 0 Sodium 141 Potassium 4.2 Chloride 107 Carbon Dioxide 22.8 Anion Gap 11 BUN < 5 L Creatinine 0.7 Estim Creat Clear Calc 115.5 eGFR > 60 BUN/Creatinine Ratio 7 L Glucose 118 H Calculated Osmolality 279 Calcium 8.6 Corrected Calcium 8.6 Total Bilirubin 0.4 AST 26 ALT 25 Alkaline Phosphatase 67 D Total Protein 6.9 Albumin 4.3 D Globulin 2.6 Albumin/Globulin Ratio 1.7 ASSOCIATE PROFESSOR OF LITERACY - A/P Assessment and plan (1) Pelvic pain: Problem details: Patient was admitted with a low-grade fever of 100.3 degrees and pain. She has a history of endometriosis and has an endometrioma. Her white count admission was 25. She has been on Rocephin and doxycycline now for almost 2 days. Her white count is now down to 11 with 69% neutrophils. She has been afebrile since admission. The plan will be to repeat an ultrasound, place the patient on oral antibiotics and oral pain medications and probably send the patient home later today. I encouraged her to start ambulating the hallway. Status: Acute (2) Ovarian cyst: Status: Acute (3) Endometriosis: Status: Acute (4) Right tubo-ovarian abscess: Problem details: Afebrile since admission. Tmax 100.3 in the ER. Patient is greater than 36 hours without a fever. On Rocephin and doxycycline. Probably home on Augmentin and doxycycline. A repeat transvaginal ultrasound was ordered also urine GC chlamydia needs to be checked. Status: Acute Time Spent With Patient Time: Total time spent is greater than 50% in coordination of care (as documented) at patient's floor/unit and/or counseling patient: Time with patient: less than 15 minutes
[2025-04-09 12:50] VITALS: BP 141/99; PULSE 79; RESP 16; TEMP 36.7; O2SAT 94
[2025-04-09 16:00] VITALS: BP 129/93; PULSE 77; RESP 16; TEMP 37.1; O2SAT 97
--- NOTE | 2025-04-09 18:27 | ESDS_ITS ---
Planned Discharge Date 04/09/25 DS: Providers Provider Date of admission: 04/07/25 23:46 Primary care physician: Physician No Primary/Family Admitting Provider: Minnie [facility] ([facility]) Attending Provider on Admission: Minnie Godoy [facility] ([facility]) Attending Provider on DC: Minnie Godoy MD ([facility]) Discharging Provider: Minnie Godoy MD ([facility]) Anticipated date of discharge: 04/09/25 DS: Diagnosis Discharge Diagnosis (1) Endometriosis: Status: Acute Assessment & Plan: Patient was admitted with a history of endometriosis and pelvic pain. She had a low-grade fever of 100.3. She was placed on 1 dose of Zosyn followed by Rocephin with doxycycline and she defervesced. On hospital day #2 she was ambulating passing flatus her ultrasound was not significantly different. She was afebrile. She was discharged home on oral antibiotics to follow-up with her industrial waste inspector in [place] in 1 week. (2) Ovarian cyst: Status: Acute Assessment & Plan: Patient has endometriomas. She will need a laparoscopic evaluation by her primary industrial waste inspector scheduled as an outpatient (3) Pelvic pain: Status: Acute Problem List Completed Was Problem List Reviewed/Reconciled?: Yes Hospital Course Hospital Course Hospital course: The patient is a 24-year-old G0 presented to the ER earlier this afternoon with pelvic pain. She stated worsened over the last 3 days. She denied fevers or chills, she reports the pain is stabbing ,diffuse and constant. She denies diarrhea or constipation or rectal bleeding. She has mild nausea but no vomiting. Per patient she has a history of fibroids and endometriosis. She was seeing a physician in [place] and had an MRI done in January of this year. Patient has the report on her phone. It is from February 20 revealing suspected bilateral endometriomas each 2 to 3 cm. Patient is engaged and her fianc? is at bedside during the interview. She reports some abnormal bleeding and some discharge. She denied history of STDs or new sexual contacts. She states her cycles are irregular they are not using anything consistently for contraception. As part of her workup, the patient had a CBC revealing an elevated white count of 25 with 89% neutrophils. Hemoglobin was stable at 13.9. hCG is negative. UA is unremarkable. A CT scan revealed a 5 cm mass with inflammatory changes in the right adnexa a transvaginal ultrasound was performed but not officially read yet. I did look at the films and uterus measures approximately 6.7 x 4.7 x 3 cm with a 0.3 cm stripe right ovary is enlarged 6.9 x 4.6 x 5.4 cm with grayish appearance and complex suggestive of a possible endometrioma ,her left ovary measures 4.4 x 2.9 x 3 cm. Patient had a temperature of 100.3 degrees in the emergency room. Before I was consulted, Zosyn was given. In the emergency room, the patient is asking if she can eat. For her pain as an outpatient, the patient was only given ibuprofen. She was supposed to follow-up with her primary industrial waste inspector in [place] but did not receive a phone call after her MRI done February 20, 2025. Patient is on Rocephin and Doxycycline and her pain is still there abdomen but is getting better This morning, the patient is resting comfortably tolerating a general diet. She has not been ambulating much and states she still having pain. A transvaginal ultrasound has been ordered. This afternoon the patient remains afebrile. Her transvaginal ultrasound is not markedly different from admission. She will be discharged home day of hospitalization #2 in stable condition Status at Discharge Cognitive/behavioral status at discharge: Patient is alert and orient x 3 no apparent distress Functional status at discharge: independent ambulation Overall status at discharge: patient is progressing back to baseline Time Spent with Patient Time attestation: Total time spent providing and/or coordinating discharge services: Time spent: Less than 30 minutes Specific discharge activities: Pelvic rest x 2 weeks. Follow-up with your primary industrial waste inspector in [place] in 1 week. Exam - FIBROUS PLASTERER Vital Signs Temp Pulse Resp BP Pulse Ox O2 Del Method 98.7 F 77 16 129/93 H 97 Room Air 04/09/25 16:00 04/09/25 16:00 04/09/25 16:00 04/09/25 16:00 04/09/25 16:00 04/09/25 16:00 Constitutional Constitutional: no acute distress Comments: Abdomen soft slightly tender no rebound no guarding Discharge Plan Plan Patient Disposition: HOME (Self Care) Patient condition on transfer: Stable Prescriptions/Referrals Prescriptions/Med Rec: New acetaminophen 325 mg Tablet 650 mg PO Q6H PRN (Reason: Fever >101.5) Qty: 30 0RF oxycodone-acetaminophen 5-325 mg Tablet 1 tab PO Q6H MDD 2 PRN (Reason: Pain Scale 4-6 (Moderate) Qty: 10 0RF docusate sodium 100 mg Capsule 100 mg PO QDAY PRN (Reason: Constipation) Qty: 2 0RF ibuprofen 600 mg Tablet 600 mg PO Q6H PRN (Reason: Pain Scale 1-3 (Mild) Qty: 60 0RF doxycycline hyclate 100 mg Tablet 100 mg PO BID Qty: 14 0RF amoxicillin-pot clavulanate 875-125 mg tablet 1 tab PO BID Qty: 20 0RF Continued amlodipine 5 mg tablet 5 mg PO QDAY Patient Comments: TAKE 1 TABLET BY MOUTH ONCE DAILY hydroxyzine HCl 25 mg tablet 25 mg PO TID Patient Comments: TAKE 1 TABLET BY MOUTH THREE TIMES DAILY NEEDED albuterol sulfate 90 mcg/actuation HFA aerosol inhaler 2 puff INHALATION Q4H PRN (Reason: shortness of breath or wheezing) Patient Comments: INHALE 2 PUFFS BY MOUTH EVERY 4 TO 6 HOURS NEEDED FOR SHORTNESS OF BREATH sertraline 50 mg tablet 50 mg PO QDAY Patient Comments: TAKE 1/2 (ONE-HALF) TABLET BY MOUTH ONCE DAILY FOR 7 DAYS, THEN 1 TABLET ONCE DAILY Qvar RediHaler 40 mcg/actuation HFA aerosol breath activated 2 inh INHALATION BID Patient Comments: INHALE 2 PUFFS BY MOUTH TWICE DAILY Referrals: No Primary/Family,Physician [Primary Care Provider] Patient/Caregiver Discharge Instructions Discharge Activity: activity as tolerated Other Discharge Activity Instructions:: Pelvic rest x 2 weeks. Call your industrial waste inspector in [place] for follow-up in 1 week. Other Discharge Diet Instructions: General diet as tolerated Education Materials: Abdominal Pain, What Is Endometriosis?, Treating Endometriosis, Understanding the Pain Response, Understanding Ovarian Cysts, ED Endometriosis, ED Ovarian Cyst Print Language: Croatian Activity Restrictions/Additional Instructions: Seat Pack Inspector for follow-up in 1 week. Stand Alone Forms: Megan Award Info., Patient Portal Info Letter, Work/Release Restrictions Discharge Order Discharge Orders: Discharge (Routine); Ordered 04/09/25 Ordered By: Minnie Godoy ([facility]) (2) Ovarian cyst Qualifiers: Laterality: right Qualified Code(s): N83.201 - Unspecified ovarian cyst, right side (3) Pelvic pain Qualifiers: Laterality: unspecified laterality Qualified Code(s): R10.20 - Pelvic and perineal pain unspecified side
== END 2025-04-09 19:38 | disposition home or self-care (01) ==
LOC: SERX 23:43 → SERHOLD 04-08 00:32 → S3SX 04-08 01:29
PROVIDERS: Emergency Medicine; Physician Assistant; Admitting Provider Obstetrics & Gynecology; Emergency Provider Emergency Medicine; Visit Provider Obstetrics & Gynecology
DX: N80.9 Endometriosis, unspecified (principal); N83.201 Unspecified ovarian cyst, right side; N70.93 Salpingitis and oophoritis, unspecified
CPT/HCPCS: 36415; 71045; 74177; 76700; 76830; 80053; 81001; 82248; 83605; 83735; 84145; 84439; 84443; 84481; 84703; 85025; 85652; 86140; 87040; 87491; 87502; 87591; 87635; 87651; 87661; 96365; 96366; 96375; 96376; 99284; A4649; G0378; J0696; J1171; J1885; J2405; J2543; J2765; J3480; J7030; Q9967; A9270